=== PATIENT | female | born 1980 | race Caucasian/White ===

== ENCOUNTER 2016-09-30 23:18 | Inpatient (IN) | payer OTHER, MEDICAID ==
--- NOTE | 2016-09-30 23:34 | EDPHY ---
H & P Stated Complaint: SI - M1 Source: Patient, Police - Personal History LMP (Females 10-55): Unknown - Medical/Surgical History Hx Asthma: No Hx Chronic Respiratory Disease: No Hx Diabetes: No Hx Cardiac Disease: No Hx Renal Disease: No Hx Cirrhosis: No Hx Alcoholism: No Hx HIV/AIDS: No Hx Splenectomy or Spleen Trauma: No Other PMH: bipolar, anxiety/depression, ptsd - Social History Smoking Status: Current some day smoker HPI/ROS: HPI CHIEF COMPLAINT: M1 hold by David HISTORY OF PRESENT ILLNESS: This patient 36-year-old female she is refusing to speak with me or answer any of my questions however she presents emergency room on M1 hold by [place] [employer]. According to the M1 hold the patient called 911 stating that she wants to commit suicide. She states she is upset over the anniversary of the of her . She is apparently intoxicated according to the M1 hold. She asked the police when they arrived to shoot her in the head. Upon evaluation here in emergency room the patient is refusing to answer my questions or make eye contact. Past Medical History: Unknown medical history Past Surgical History: Unknown surgical history Social History: Unknown social history Family History: Unknown family history ROS REVIEW OF SYSTEMS: Review of systems at this time is limited due to patient's cooperation in history and medical exam. Exam Constitutional not answer any questions, triage nursing summary reviewed, vital signs reviewed, awake/alert. Eyes normal conjunctivae and sclera, EOMI, PERRLA. HENT normal inspection, atraumatic, moist mucus membranes, no epistaxis, neck supple/ no meningismus, no raccoon eyes. Respiratory clear to auscultation bilaterally, normal breath sounds, no respiratory distress, no wheezing. Cardiovascular rate normal, regular rhythm, no murmur, no edema, distal pulses normal. Gastrointestinal soft, non-tender, no rebound, no guarding, normal bowel sounds, no distension, no pulsatile mass. Genitourinary no CVA tenderness. Musculoskeletal no midline vertebral tenderness, full range of motion, no calf swelling, no tenderness of extremities, no meningismus, good pulses, neurovascularly intact. Skin pink, warm, & dry, no rash, skin atraumatic. Neurologic awake, alert and oriented x 3, AAOx3, moves all 4 extremities equally, motor intact, sensory intact, CN II-XII intact, normal cerebellar, normal vision, normal speech. Psychiatric not making eye contact Heme/Lymph/Immune no lymphadenopathy. Differential Diagnosis: Includes but is not limited to in a particular order, suicidal ideation, drug intoxication, alcohol intoxication, M1 hold, mood disorder, other underlying psychiatric illness, depression Medical Decision Making: Plan for this patient blood draw for medical clearance including alcohol level and drug screen. Patient be on M1 hold. I will attempt to re-evaluate her and hopefully get more information from her at this time she is not participating exam. Re-evaluation: 0653: No acute events overnight. Patient is still pending a mental health evaluation. Patient here on M1 hold. He was suicidal ideation. Signed over to Dr. Ferro at 7am shift change. 2300: 10/01/16: The patient was turned back over to me at 11:00 p.m. shift change. No acute events today. (Selwyn Camacho) Constitutional: Initial Vital Signs Heart Rate 101 H 09/30/16 23:22 Respiratory Rate 18 09/30/16 23:22 Blood Pressure 106/84 H 09/30/16 23:22 O2 Sat (%) 95 09/30/16 23:22 O2 Delivery Mode Room Air Allergies/Adverse Reactions: No Known Allergies Allergy (Verified 09/30/16 23:26) Home Medications: Medication Instructions Recorded NO HOME MEDS 07/17/09 Medical Decision Making ED Course/Re-evaluation: 0 700: The patient is signed out to me at change of shift by Dr. Camacho. Patient is stable. Patient was rechecked during her stay. No new complaints. 1500: The patient was signed out to Dr. Mccloud at change of shift. (Samantha Nettles) I assumed care of the patient at 3:00 p.m.. Update at midnight: The patient has been accepted for inpatient psychiatric admission at [facility] by Dr. Gutierrez. I have filled out the EMTALA transfer form. (Dick Mccloud) - Data Points Laboratory Results: Laboratory Results 09/30/16 23:35 09/30/16 23:35 Medications Given: Discontinued Medications Lorazepam (Ativan) 1 mg PO EDNOW ONE Stop: 10/01/16 07:35 Last Admin: 10/01/16 07:39 Dose: 1 mg Lorazepam (Ativan) 1 mg PO ONCE ONE Stop: 10/01/16 21:04 Last Admin: 10/01/16 21:08 Dose: 1 mg Departure - Departure Disposition: [facility] IP Clinical Impression: Suicidal ideation Condition: Fair Instructions: Suicide Prevention for Adults (ED) Referrals: Patient,NotPresent [Primary Care Provider] - As per Instructions
[2016-09-30 23:53] LABS: % IMMATURE GRANULYOCYTES 0.2 % (0.0-1.1); ABSOLUTE IMMATURE GRANULOCYTES 0.02 10^3/uL (0.00-0.10); ADD DIFF? NO; ADD MORPH? NO; ADD SCAN? NO; ATYPICAL LYMPHOCYTE FLAG 20 (0-99); FRAGMENT RBC FLAG 0 (0-99); HEMATOCRIT 44.9 % (38.0-47.0); HEMOGLOBIN 14.6 g/dL (12.6-16.3); LEFT SHIFT FLG 0 (0-99); LIPEMIA HEMOLYSIS FLAG 80 (0-99); MEAN CELL HEMOGLOBIN 28.7 pg (27.9-34.1); MEAN CELL HEMOGLOBIN CONCENTR. 32.5 g/dL (32.4-36.7); MEAN CELL VOLUME 88.4 fL (81.5-99.8); MEAN PLATELET VOLUME 10.8 fL (8.7-11.7); PLATELET CLUMPS FLAG 0 (0-99); PLATELET COUNT 246 10^3/uL (150-400); RED BLOOD CELL COUNT 5.08 10^6/uL (4.18-5.33); RED CELL DISTRIBUTION WIDTH 14.2 % (11.5-15.2)
[2016-10-01 00:09] LABS: ANION GAP 16 mEq/L (8-16); CALCIUM 9.3 mg/dL (8.5-10.4); CARBON DIOXIDE 20 mEq/l (22-31); CHLORIDE 112 mEq/L (97-110); CREATININE 0.7 mg/dL (0.6-1.0); ETHANOL SERUM 279 mg/dL (0-10); GLOMERULAR FILTRATION RATE > 60; GLUCOSE 94 mg/dL (70-100); POTASSIUM 3.9 mEq/L (3.5-5.2); SALICYLATE < 1.0 mg/dL (2.0-20.0); SODIUM 148 mEq/L (134-144)
[2016-10-01] MEDS ORDERED: LORazepam 1 MG TAB PO ONE ×2 (07:34→21:03)
[2016-10-02] MEDS ORDERED: NICOTINE POLACRILEX 2 MG GUM B PRN (03:57)
[2016-10-02] MEDS ORDERED: MAG HYDROX/AL HYDROX/SIMETH 30 ML UDCUP PO PRN ×2 (03:57→11:07)
[2016-10-02] MEDS ORDERED: MAGNESIUM HYDROXIDE 30 ML UDCUP PO PRN (03:57)
[2016-10-02] MEDS ORDERED: OLANZapine DISINTEGR 10 MG TAB PO PRN (03:57)
[2016-10-02] MEDS ORDERED: LORazepam 0.5 MG TAB PO PRN (03:57)
[2016-10-02] MEDS ORDERED: chlordiazePOXIDE 25 MG CAP PO STA (10:52)
[2016-10-02] MEDS ORDERED: chlordiazePOXIDE 25 MG CAP PO PRN (11:07)
[2016-10-02] MEDS ORDERED: PROMETHAZINE HCL 25 MG SUPPR PR PRN (11:07)
[2016-10-02] MEDS ORDERED: THIAMINE HCL 100 MG TAB PO ONE (11:07)
[2016-10-02] MEDS ORDERED: IBUPROFEN 200 MG TAB PO PRN (11:07)
[2016-10-02] MEDS ORDERED: PROMETHAZINE HCL 25 MG TAB PO PRN (11:07)
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
[2016-10-02 17:17] LABS: ALANINE AMINOTRANSFERASE 18 IU/L (9-52); ALBUMIN 4.5 g/dL (3.5-5.0); ALKALINE PHOSPHATASE 64 IU/L (38-126); ASPARTATE AMINOTRANSFERASE 32 IU/L (14-46); BILIRUBIN,TOTAL 0.5 mg/dL (0.1-1.4); BILIRUBIN-CONJUGATED 0.4 mg/dL (0.0-0.5); BILIRUBIN-UNCONJUGATED 0.1 mg/dL (0.0-1.1); TOTAL PROTEIN 7.8 g/dL (6.3-8.2)
[2016-10-03] MEDS: THIAMINE HCL 100 MG TAB PO SCH (08:00)
[2016-10-03] MEDS: MULTIVITAMINS 1 EACH TAB PO SCH (08:00)
[2016-10-03] MEDS: FOLIC ACID 1 MG TAB PO SCH (08:00)
[2016-10-03] MEDS: ACETAMINOPHEN 325 MG TAB PO PRN (08:33)
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
[2016-10-03] MEDS ORDERED: LORazepam 1 MG TAB PO ONE (20:15)
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
[2016-10-04] MEDS: hydrOXYzine HCL 25 MG TAB PO PRN ×2 (09:01→15:39)
[2016-10-04] MEDS: ACETAMINOPHEN 325 MG TAB PO PRN ×2 (09:01→12:39)
[2016-10-04] MEDS: MULTIVITAMINS 1 EACH TAB PO SCH (12:28)
[2016-10-04] MEDS: FOLIC ACID 1 MG TAB PO SCH (12:28)
[2016-10-04] MEDS: THIAMINE HCL 100 MG TAB PO SCH (12:29)
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
[2016-10-04] MEDS ORDERED: LORazepam 1 MG TAB PO ONE (20:00)
[2016-10-04] MEDS: PRAZOSIN HCL 1 MG CAP PO SCH (22:16)
[2016-10-05] MEDS: hydrOXYzine HCL 25 MG TAB PO PRN ×3 (06:20→21:03)
[2016-10-05] MEDS: ACETAMINOPHEN 325 MG TAB PO PRN ×4 (06:20→19:19)
[2016-10-05] MEDS: FOLIC ACID 1 MG TAB PO SCH ×2 (17:53→17:55)
[2016-10-05] MEDS: MULTIVITAMINS 1 EACH TAB PO SCH (17:53)
[2016-10-05] MEDS: THIAMINE HCL 100 MG TAB PO SCH (17:54)
[2016-10-05] MEDS: PRAZOSIN HCL 1 MG CAP PO SCH (21:02)
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
[2016-10-05] MEDS ORDERED: PRAZOSIN HCL 1 MG CAP PO ONE (22:45)
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
[2016-10-06] MEDS: MULTIVITAMINS 1 EACH TAB PO SCH (12:08)
[2016-10-06] MEDS: FOLIC ACID 1 MG TAB PO SCH (12:08)
[2016-10-06] MEDS: hydrOXYzine HCL 25 MG TAB PO PRN ×2 (14:14→20:03)
[2016-10-06] MEDS ORDERED: PRAZOSIN HCL 1 MG CAP PO SCH (21:00)
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
[2016-10-07] MEDS: ACETAMINOPHEN 325 MG TAB PO PRN (07:10)
[2016-10-07] MEDS: hydrOXYzine HCL 25 MG TAB PO PRN ×3 (07:10→19:47)
[2016-10-07] MEDS: FOLIC ACID 1 MG TAB PO SCH (10:31)
[2016-10-07] MEDS: MULTIVITAMINS 1 EACH TAB PO SCH (10:31)
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
[2016-10-07] MEDS: LITHIUM CARBONATE ER 300 MG TAB PO SCH ×2 (14:03→19:47)
[2016-10-07] MEDS: PRAZOSIN HCL 1 MG CAP PO SCH (19:47)
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
[2016-10-08] MEDS: LITHIUM CARBONATE ER 300 MG TAB PO SCH ×2 (08:36→20:26)
[2016-10-08] MEDS: FOLIC ACID 1 MG TAB PO SCH (08:36)
[2016-10-08] MEDS: MULTIVITAMINS 1 EACH TAB PO SCH (08:36)
[2016-10-08] MEDS: hydrOXYzine HCL 25 MG TAB PO PRN ×2 (08:39→20:26)
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
[2016-10-08 17:15] VITALS: TEMP 98.1
[2016-10-08] MEDS: PRAZOSIN HCL 1 MG CAP PO SCH (20:26)
[2016-10-09 06:22] VITALS: BP 108/59; PULSE 88; RESP 14; O2SAT 96
[2016-10-09] MEDS: MULTIVITAMINS 1 EACH TAB PO SCH (08:28)
[2016-10-09] MEDS: LITHIUM CARBONATE ER 300 MG TAB PO SCH (08:28)
[2016-10-09] MEDS: FOLIC ACID 1 MG TAB PO SCH (08:28)
[2016-10-09] MEDS: hydrOXYzine HCL 25 MG TAB PO PRN (08:30)
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
== END 2016-10-09 12:25 | disposition home or self-care (01) | DRG 881 ==
LOC: BBEH 10-02 03:45
PROVIDERS: ADMIT Psychiatry & Neurology Psychiatry; ATTEND Psychiatry & Neurology Psychiatry
DX: F32.9 Major depressive disorder, single episode, unspecified (principal); F10.239 Alcohol dependence with withdrawal, unspecified; F10.229 Alcohol dependence with intoxication, unspecified; N63 Unspecified lump in breast; F31.9 Bipolar disorder, unspecified; F15.10 Other stimulant abuse, uncomplicated; F43.10 Post-traumatic stress disorder, unspecified; F17.210 Nicotine dependence, cigarettes, uncomplicated; M54.40 Lumbago with sciatica, unspecified side
CPT/HCPCS: 80305; G0480